=== PATIENT | female | born 1980 | race Caucasian/White ===

== ENCOUNTER 2020-07-16 09:37 | Emergency (ER) | payer OTHER, SELFPAY ==
--- NOTE | 2020-07-16 09:40 | ED.GENADULT ---
HPI - General Adult General Chief complaint: Upper Respiratory Infection Stated complaint: sore throat Time Seen by Provider: 07/16/20 09:40 Source: patient Mode of arrival: ambulatory Limitations: no limitations History of Present Illness HPI narrative: 40-year-old female patient presents to the [facility] with complaints of a sore throat and cold symptoms for the past 2 days. Patient states she has had a fever as high as 101, chills, severe sore throat, runny nose, stuffy nose and a slight mild nonproductive cough. Patient states she is a smoker. Denies any chest pain or shortness of breath. Patient states she has been taking some plvg-yux-wmdqmle cold medications for her symptoms without much relief. Patient denies being around anybody with coronavirus that she is aware of. Related Data Home Medications Medication Instructions Recorded Confirmed etonogestrel [Nexplanon] 1 implant SUBDERMAL ONCE 07/16/20 07/16/20 Allergies Allergy/AdvReac Type Severity Reaction Status Date / Time No Known Allergies Allergy Verified 07/16/20 09:52 Review of Systems Review of Systems: Narrative: CONSTITUTIONAL: Positive subjective fever, chills,, denies sweats. EYES: Denies visual changes, redness, or discharge. ENT: Positive rhinorrhea, congestion, sore throat, denies otalgia. CARDIOVASCULAR: Denies chest pain, palpitations, or edema. RESPIRATORY: Positive mild nonproductive cough, denies dyspnea. GASTROINTESTINAL: Denies abdominal pain, nausea, vomiting, or diarrhea. GENITOURINARY: Denies dysuria or hematuria. SKIN: Denies rash or itching. MUSCULOSKELETAL: Denies back pain, joint pain, or myalgia. NEUROLOGIC: Denies headache, numbness, or weakness. PSYCHIATRIC: Denies anxiety or depression. PMFSH Comments At the time of my signature I agree with nursing past medical history, surgical, social, and family history. There is no relevant family history pertinent to the presenting complaint. Exam Narrative: Exam Narrative: GENERAL: Well-appearing, well-nourished, and in no acute distress. HEAD: Normocephalic, atraumatic. No tenderness noted to frontal or maxillary sinuses on palpation EYES: PERRLA and EOMI. ENT: Nares with erythema and edema noted bilaterally, no rhinorrhea or epistaxis. Mucous membranes moist. Posterior pharynx with erythema but no tonsil enlargement noted. No exudates or lesions present. Bilateral TMs are clear with no erythema or foreign bodies in the canal. NECK: Supple. No lymphadenopathy CHEST: Clear to auscultation. No respiratory distress. Patient able talk clear complete sentences. HEART: Regular rate and rhythm. No murmur heard. Normal peripheral pulses. ABDOMEN: Soft, nontender, nondistended, normal active bowel sounds. EXTREMITIES: Normal range of motion. No edema. SKIN: Warm, dry, no rash. NEURO: No focal deficits. Alert and oriented x3. Course Reevaluation(s) Reevaluation #1: Reevaluated patient after swab had come back. Notified her that her flu and her strep are both negative today. Discussed with her that we will send a strep swab off to the lab for further evaluation and testing and if the culture does come back positive in the next day or 2 we will call her and place her on antibiotics. Discussed with her this most likely is a type of virus. Offered to send patient for Covid testing however patient has refused at this time. Discussed with patient that she can take Tylenol, ibuprofen for her pain, fevers and body aches. Ofxw-yba-xneuhgf cough medication. I will send her home with some viscous lidocaine to help with the sore throat pain. Patient verbalized understanding denies any other questions or concerns at this time. Date: 07/16/20 Time: 10:10 Vital Signs Vital signs: Vital Signs Temperature 37.1 C 07/16/20 09:42 Pulse Rate 88 07/16/20 09:42 Respiratory Rate 14 07/16/20 09:42 Blood Pressure 115/75 07/16/20 09:42 Pulse Oximetry 99 07/16/20 09:42 Temperature 37.1
[2020-07-16 09:42] VITALS: BP 115/75; PULSE 88; RESP 14; TEMP 37.1; O2SAT 99
== END 2020-07-16 10:12 | disposition home or self-care (01) ==
PROVIDERS: Emergency Provider Nurse Practitioner Family
DX: J02.9 Acute pharyngitis, unspecified (principal); J06.9 Acute upper respiratory infection, unspecified; R05 Cough
CPT/HCPCS: 87081; 87147; 87804; 87880; 99213; G0463